=== PATIENT | female | born 1990 | race Caucasian/White ===

== ENCOUNTER 2024-09-09 01:46 | Emergency (ER) | payer OTHER ==
[~2024-09-09] VITALS: Ht 152.4 cm; Wt 75.0 kg
[~2024-09-09 01:46] MED LIST: ALDACTONE100 MG PO; PREVACID15 M1 PO; XYZAL5 MG PO
[2024-09-09 04:15] LABS: ALBUMIN 3.8 g/dL (3.4-5.0); ALBUMIN/GLOBULIN RATIO 1.03 (1.1-2.4); ALKALINE PHOSPHATASE 168 U/L (46-116); ALT (SGPT) 389 U/L (14-59); ANION GAP 9.7 (7-21); AST (SGOT) 280 U/L (15-37); BILIRUBIN, TOTAL 0.2 mg/dL (0.2-1.0); BUN/CREATININE RATIO 23.75 (6.0-28.6); CALCIUM 8.9 mg/dL (8.5-10.1); CARBON DIOXIDE 27 mmol/L (21-32); CHLORIDE 104 mmol/L (98-107); GLOMERULAR FILTRATION RATE,EST 98 mL/min (>60); POTASSIUM 3.7 mmol/L (3.5-5.1); PROTEIN, TOTAL 7.5 g/dL (6.4-8.2); UREA NITROGEN 19 mg/dL (7-18)
[2024-09-09] MEDS ORDERED: LACTATED RINGER'S 1,000 ML IV ONE (04:15)
[2024-09-09] MEDS ORDERED: NORTRIPTYLINE H10 MG PO (04:27)
[2024-09-09 04:32] LABS: BASOPHILS 0.5 % (0.1-1.2); EOSINOPHILS 3.4 % (0.7-5.8); HEMATOCRIT 42.6 % (34.1-44.9); HEMOGLOBIN 13.9 g/dL (11.2-15.7); MCH 30.8 PG (25.6-32.2); MCHC 32.6 g/dL (32.2-35.5); MCV 94.5 fL (79.4-94.8); MONOCYTES 10.2 % (4.7-12.5); NEUTROPHILS 40.8 % (34.0-71.1); PLATELET COUNT 271 K/uL (182-369); RBC 4.51 M/uL (3.93-5.22)
[2024-09-09 04:33] LABS: BILIRUBIN, URINE NEGATIVE (negative); BLOOD/HGB, URINE NEGATIVE (Negative); KETONE, URINE NEGATIVE (Negative); LEUK ESTERASE, URINE NEGATIVE (negative); NITRITE, URINE NEGATIVE (negative)
[2024-09-09 04:57] VITALS: BP 130/82
[2024-09-09 09:40] LABS: AMPHETAMINES, URINE NEGATIVE (NEGATIVE); BARBITURATES, URINE NEGATIVE (NEGATIVE); BENZODIAZEPINE, URINE NEGATIVE (NEGATIVE); BUPRENORPHINE, URINE NEGATIVE (NEGATIVE); CANNABINOID, URINE NEGATIVE (NEGATIVE); COCAINE, URINE NEGATIVE (NEGATIVE); ECSTASY, URINE NEGATIVE (NEGATIVE); FENTANYL, URINE NEGATIVE (NEGATIVE); METHADONE, URINE NEGATIVE (NEGATIVE); OPIATES, URINE NEGATIVE (NEGATIVE); OXYCODONE, URINE NEGATIVE (NEGATIVE); PHENCYCLIDINE, URINE NEGATIVE (NEGATIVE)
[2024-09-09 10:35] LABS: TSH, 3RD GENERATION 10.242 uIU/mL (0.358-3.740)
--- NOTE | 2024-09-10 07:48 | EKG ---
[facility] [address] [facility] [place] [address] Signed Sinus tachycardia Low voltage QRS Nonspecific ST abnormality Abnormal ECG No previous ECGs available Confirmed by Shahnaz Georges MD ([id number]) on 09/10/2024 7:47:55 AM Electronically Signed By: SHAHNAZ GEORGES MD 09/10/24 0748 PATIENT NAME: BAMBI BEASLEY Electrocardiogram DATE OF : 88 PHYSICIAN: SHAHNAZ GEORGES MD REPORT #: [id number] REPORT IS CONFIDENTIAL AND NOT TO BE RELEASED WITHOUT AUTHORIZATION
[2024-09-10 12:42] LABS: THYROXINE FREE 0.4 ng/dL (0.9-1.7)
[2024-09-11 13:51] LABS: HEPATITIS A ANTIBODY, IGM Negative (Negative); HEPATITIS B CORE ANTIBODY, IGM Negative (Negative); HEPATITIS B SURFACE ANTIGEN Negative (Negative); HEPATITIS C AB CIA INTERP Negative (Negative); HEPATITIS C ANTIBODY CIA INDEX 0.19 IV (())
== END 2024-09-09 05:04 | disposition home or self-care (01) ==
LOC: ED 01:46
PROVIDERS: Internal Medicine
DX: R00.2 Palpitations (principal); Z79.899 Other long term (current) drug therapy
CPT/HCPCS: 36415; 76705; 80053; 80074; 80307; 81003; 84439; 84443; 84484; 84703; 85025; 85379; 93005; 93010; 99285-25; J7121

== ENCOUNTER 2024-09-28 07:43 | Emergency (ER) | payer OTHER ==
[~2024-09-28] VITALS: Ht 152.4 cm; Wt 70.2 kg
--- OUTSIDE RECORDS SUMMARY | ~2024-09-28 | XMS | Continuity of Care Document ---
Demographics + + + | Address | [address] | | | [place] [address] | + + + | Preferred Language | Unknown | + + + | Marital Status | Never | + + + | Gnosticism Affiliation | Unknown | + + + | Race | White | + + + | Ethnic Group | Not or | + + + Author + + + | Author | [facility] | + + + | Organization | [facility] | + + + | Address | [address] | | | [place] [address] | + + + | Phone | | + + + Care Team Providers + + + + | Care Safety And Skill Based Pay Manager Name | Role | Phone | + [...] | 2024-09-07 00:00 | Laryngopharyngeal reflux | [facility] | | | (disorder) | | + + + + | 2024-09-07 00:00 | GERD-ESOPHAGEAL REFLUX | [facility] | | | | | + + + + | 2024-09-07 00:00 | Laryngopharyngeal Reflux | [facility] | | | Without Esophagitis [...]
[~2024-09-28 07:43] MED LIST changes: +NORTRIPTYLINE H10 MG PO
--- OUTSIDE RECORDS SUMMARY | 2024-09-28 07:50 | XMS ---
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 [place] VISIT COUNT (12 MO.) 2 [facility] TOTAL 2 NOTE: Visits indicate total known visits. ED/UCC VISIT TRACKING (12 MO.) 09/28/2024 07:43 [facility] TYPE: Emergency COMPLAINT: - HEART RATE ISSUE 09/09/2024 01:46 [facility] [place] TYPE: Emergency COMPLAINT: - HEART RATE ISSUES DIAGNOSES: - Other senior care (current) drug therapy - Palpitations INPATIENT VISIT TRACKING (12 MO.) No inpatient visits to display in this time frame [email or web address]
[2024-09-28 08:44] LABS: BILIRUBIN, URINE NEGATIVE (negative); BLOOD/HGB, URINE NEGATIVE (Negative); KETONE, URINE TRACE (Negative); LEUK ESTERASE, URINE NEGATIVE (negative); NITRITE, URINE NEGATIVE (negative)
[2024-09-28 08:51] LABS: BASOPHILS 0.7 % (0.1-1.2); EOSINOPHILS 4.4 % (0.7-5.8); HEMATOCRIT 42.7 % (34.1-44.9); HEMOGLOBIN 14.3 g/dL (11.2-15.7); LYMPHOCYTES 23.1 % (19.3-51.7); MCH 30.8 PG (25.6-32.2); MCHC 33.5 g/dL (32.2-35.5); MCV 91.8 fL (79.4-94.8); MONOCYTES 6.4 % (4.7-12.5); NEUTROPHILS 65.2 % (34.0-71.1); PLATELET COUNT 275 K/uL (182-369); RBC 4.65 M/uL (3.93-5.22)
[2024-09-28 09:21] LABS: ANION GAP 11.6 (7-21); BUN/CREATININE RATIO 22.35 (6.0-28.6); CALCIUM 9.6 mg/dL (8.5-10.1); CREATININE, SERUM 0.85 mg/dL (0.55-1.02); POTASSIUM 3.6 mmol/L (3.5-5.1); TSH, 3RD GENERATION 2.835 uIU/mL (0.358-3.740)
[2024-09-28 11:43] VITALS: BP 113/67
--- NOTE | 2024-09-28 22:25 | EKG ---
[facility] [address] [facility] [place] [address] Signed Normal sinus rhythm with sinus arrhythmia Normal ECG When compared with ECG of 09-SEP-2024 01:52, No significant change was found Confirmed by Oren Gimenez MD () on 09/28/2024 10:25:28 PM Electronically Signed By: OREN GIMENEZ MD 09/28/242224 PATIENT NAME: CONRAD BEASLEYIHSAN TITUSE Electrocardiogram DATE OF : 88 PHYSICIAN: OREN GIMENEZ MD REPORT #: [id number] REPORT IS CONFIDENTIAL AND NOT TO BE RELEASED WITHOUT AUTHORIZATION
[2024-09-29 23:28] LABS: THYROXINE 2.34 ug/dL (4.50-11.70)
== END 2024-09-28 11:44 | disposition home or self-care (01) ==
LOC: ED 07:43
PROVIDERS: Emergency Medicine
DX: R00.2 Palpitations (principal); Z79.899 Other long term (current) drug therapy
CPT/HCPCS: 36415; 80048; 81003; 83735; 84436; 84443; 84703; 85025; 93005; 93010; 99285

== ENCOUNTER 2024-10-02 21:17 | Emergency (ER) | payer OTHER ==
[~2024-10-02] VITALS: Ht 152.4 cm; Wt 70.2 kg
--- OUTSIDE RECORDS SUMMARY | ~2024-10-02 | XMS | Continuity of Care Document ---
Demographics + + + | Address | [address] | | | [place] [address] | + + + | Preferred Language | Unknown | + + + | Marital Status | Never | + + + | Moravian Affiliation | Unknown | + + + | Race | White | + + + | Ethnic Group | Not or | + + + Author + + + | Author | [facility] | + + + | Organization | [facility] | + + + | Address | [address] | | | [place] [address] | + + + | Phone | | + + + Care Team Providers + + + + | Care Billing Rep Name | Role | Phone | + + + + Unavailable | Unavailable | + + + + Unavailable | Unavailable | + + + + Allergies No information. Encounters No information. Functional Status No information. Immunizations No information. Medications + + + + | date | description | facility | + + + + | 2024-09-07 00:00 | Nortriptyline HCl 10 MG | [facility] | | | Oral Capsule | | + + + + | 2024-09-07 00:00 | nortriptyline 10 MG Oral | [facility] | | | Capsule | | + + + + Problems + + + + | date | description | facility | + + + + | 2024-09-07 00:00 | Laryngopharyngeal reflux | [facility] | | | (disorder) | | + + + + | 2024-09-07 00:00 | GERD-ESOPHAGEAL REFLUX | [facility] | | | | | + + + + | 2024-09-07 00:00 | Laryngopharyngeal Reflux | [facility] | | | Without Esophagitis | | + + + + Procedures + + + + | date | description | facility | + + + + | 2024-09-09 00:00 | Established Patient VIDEO | [facility] | | | Moderate | | + + + + Results/Labs +--------+--------+ +---------+--------+---------+ | test | date | facility | value | unit | notes | +--------+--------+ +---------+--------+---------+ + + | Result panel 1 | + + + + + + + + + | No Results | (no date) | [facility] | No Results | (missing) | (missing) | | | | [facility] | | | | | | | [facility]. | | | | + + + + + + + + + | Result panel 2 | + + + + + + + + + | No Results | (no date) | [facility] | No Results | (missing) | (missing) | | | | [facility] | | | | | | [facility] | | | | + + + + + + + Social History + + + + | date | description | facility | + + + + | (no date) | Never smoked tobacco | [facility] | | | (finding) | | + + + + Vital Signs + + +---------+---------+ | date | measurement | value | units | + + +---------+---------+ | 2024-09-07 00:00 | BP_diastolic | 78 | mmHg | + + +---------+---------+ | 2024-09-07 00:00 | BP_systolic | 144 | mmHg | + + +---------+---------+ | 2024-09-07 00:00 | heart_rate | 105 | /min | + + +---------+---------+ | 2024-09-07 00:00 | o2_saturation | 98 | % | + + +---------+---------+ | 2024-09-07 00:00 | respiration_rate | 16 | /min | + + +---------+---------+ | 2024-09-07 00:00 | temperature_metric | 36.61 | C | | | | | | + + +---------+---------+ | 2024-09-07 00:00 | | 97.9 | F | | | temperature_standar | | | | | d | | | + + +---------+---------+ | 2024-09-07 00:00 | weight_metric | 70.76 | kg | + + +---------+---------+ | 2024-09-07 00:00 | weight_standard | 156 | lb | + + +---------+---------+"
--- OUTSIDE RECORDS SUMMARY | 2024-10-02 21:24 | XMS ---
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 [place] VISIT COUNT (12 MO.) 3 [facility] TOTAL 3 NOTE: Visits indicate total known visits. ED/UCC VISIT TRACKING (12 MO.) 10/02/2024 21:17 [facility] TYPE: Emergency COMPLAINT: - SEVERE THROAT PAIN 09/28/2024 07:43 [facility] TYPE: Emergency COMPLAINT: - HEART RATE ISSUE DIAGNOSES: - Other assisted (current) drug therapy - Palpitations 09/09/2024 01:46 [facility] TYPE: Emergency COMPLAINT: - HEART RATE ISSUES DIAGNOSES: - Other assisted (current) drug therapy - Palpitations INPATIENT VISIT TRACKING ( MO.) No inpatient visits to display in this time frame [id number]
[2024-10-02] MEDS ORDERED: METOPROLOL TART25 MG PO (21:42)
[2024-10-02] MEDS ORDERED: LIDOCAINE & ANTACID 35 ML BTL PO ONE (21:45)
[2024-10-02 22:17] LABS: BASOPHILS 0.4 % (0.1-1.2); EOSINOPHILS 5.1 % (0.7-5.8); HEMATOCRIT 41.4 % (34.1-44.9); HEMOGLOBIN 13.8 g/dL (11.2-15.7); LYMPHOCYTES 25.8 % (19.3-51.7); MCH 30.4 PG (25.6-32.2); MCHC 33.3 g/dL (32.2-35.5); MCV 91.2 fL (79.4-94.8); MONOCYTES 7.2 % (4.7-12.5); NEUTROPHILS 61.3 % (34.0-71.1); PLATELET COUNT 282 K/uL (182-369); RBC 4.54 M/uL (3.93-5.22)
[2024-10-02 22:36] LABS: ALBUMIN/GLOBULIN RATIO 1.05 (1.1-2.4); ALKALINE PHOSPHATASE 94 U/L (46-116); ALT (SGPT) 60 U/L (14-59); ANION GAP 15.7 (7-21); AST (SGOT) 16 U/L (15-37); BILIRUBIN, TOTAL 0.3 mg/dL (0.2-1.0); BUN/CREATININE RATIO 18.58 (6.0-28.6); CALCIUM 9.4 mg/dL (8.5-10.1); CARBON DIOXIDE 25 mmol/L (21-32); CHLORIDE 103 mmol/L (98-107); CREATININE, SERUM 1.13 mg/dL (0.55-1.02); GLOMERULAR FILTRATION RATE,EST 65 mL/min (>60); MAGNESIUM 1.8 mg/dL (1.8-2.4); POTASSIUM 3.7 mmol/L (3.5-5.1); PROTEIN, TOTAL 7.8 g/dL (6.4-8.2); UREA NITROGEN 21 mg/dL (7-18)
[2024-10-02 23:13] VITALS: BP 122/69
--- NOTE | 2024-10-03 10:13 | EKG ---
[facility] [address] [facility] [address] [place] [address] Signed Normal sinus rhythm with sinus arrhythmia Nonspecific ST abnormality Abnormal ECG When compared with ECG of 28-SEP-2024 07:46, No significant change was found Confirmed by Janet Maurice DO ([id number]) on 10/03/2024 10:13:40 AM Electronically Signed By: JANET MAURICE DO 10/03/24 1013 PATIENT NAME: BAMBI BEASLEY Electrocardiogram DATE OF : 88 PHYSICIAN: JANET MAURICE DO REPORT #: [id number] REPORT IS CONFIDENTIAL AND NOT TO BE RELEASED WITHOUT AUTHORIZATION
== END 2024-10-02 23:13 | disposition home or self-care (01) ==
LOC: ED 21:17
PROVIDERS: Emergency Medicine
DX: R07.89 Other chest pain (principal); R73.03 Prediabetes; Z79.899 Other long term (current) drug therapy
CPT/HCPCS: 36415; 71045; 80053; 83735; 84443; 84484; 85025; 93005; 93010; 99285-25